=== PATIENT | female | born 1965 | race Caucasian/White ===

== ENCOUNTER 2017-02-04 21:09 | Emergency (ER) | payer SELFPAY ==
[~2017-02-04] VITALS: Ht 180.3 cm; Wt 83.4 kg
[~2017-02-04 21:09] MED LIST: CYCL-36 PO; IBUP800 PO
[2017-02-04 21:50] VITALS: BP 169/90; PULSE 62; RESP 20; TEMP 98.1; O2SAT 98
== END 2017-02-04 21:54 | disposition left against medical advice (07) ==
LOC: PHED 21:09
DX: R10.9 Unspecified abdominal pain (principal)
CPT/HCPCS: 99281